=== PATIENT | male | born 1995 | race African-American/Black ===

== ENCOUNTER 2017-10-29 10:45 | Emergency (ER) | payer SELFPAY ==
[2017-10-29 11:22] VITALS: BP 126/67; PULSE 62; RESP 16; TEMP 97.8; O2SAT 98
--- NOTE | 2017-10-29 13:18 | PD ---
HPI Chief Complaint: Medical Clearance Time Seen by Provider: 13:09 Travel History International Travel<30 days: No Contact w/Intl Traveler<30days: No Traveled to known affect area: No History of Present Illness HPI 22-year-old male presents to the emergency department requesting that he be diagnosed with autism. He thinks he is autistic. He says he thinks he is autistic because he has a hard time following directions and he has a learning disability. He also says that people tell him that they think he is autistic. He denies suicidal or homicidal ideations. Denies feeling depressed. Denies illicit drug use. Denies tobacco use. Reports moderate alcohol use. Denies auditory or visual hallucinations. Onset unknown. Duration unknown. Symptoms are mild in severity. No known relieving or aggravating factors. Has not tried taking any medications or treatments to alleviate his symptoms. No primary care provider. Allergies to dust, cats, ragweed. Has no other medical complaints. No other modifying factors or associated signs and symptoms. History Past Medical Histgory Medical History: Denies Significant Hx Tetanus Vaccination: Unknown Social History Alcohol Use: Yes Tobacco Use: No Allergies-Medications (Allergen,Severity, Reaction): Coded Allergies: No Known Allergies (Unverified , 10/29/17) Reported Meds & Prescriptions Reported Meds & Active Scripts Active No Active Prescriptions or Reported Medications Review of Systems Except as stated in HPI: all other systems reviewed are Neg Physical Exam Narrative GENERAL: Well-nourished, well-developed black male patient, in no acute distress SKIN: Warm and dry. HEAD: Atraumatic. Normocephalic. EYES: Pupils equal and round. No scleral icterus. No injection or drainage. ENT: Mucosa pink and moist. Airway patent. NECK: Trachea midline. CARDIOVASCULAR: Regular rate. RESPIRATORY: No accessory muscle use. GASTROINTESTINAL: Flat. MUSCULOSKELETAL: No obvious deformities. No clubbing. No cyanosis. No edema. NEUROLOGICAL: Awake and alert. Oriented 3. No obvious cranial nerve deficits. Motor grossly within normal limits. Normal speech. PSYCHIATRIC: Appropriate mood and affect; insight and judgment normal. Data Data Last Documented VS Vital Signs Date Time Temp Pulse Resp B/P (MAP) Pulse Ox O2 Delivery O2 Flow Rate FiO2 10/29/17 11:22 97.8 62 16 126/67 (86) 98 MDM Medical Screen Exam Complete: Yes Emergency Medical Condition: No Differential Diagnosis Medical clearance Narrative Course 22-year-old male presents requesting to be diagnosed with autism. He is alert and his behavior is appropriate. He denies suicidal or homicidal ideations. I do not feel that he is a threat to himself or others and is capable of making decisions on his own. He is accompanied by a friend at the bedside. Vital signs are stable and the patient is stable for outpatient follow-up and treatment. The patient has no urgent or emergent medical complaints. There is no emergent or urgent medical need at this time. I instructed the patient to follow up with their primary care provider. A medical screening exam was performed: At the time of evaluation the presenting medical condition was determined not to be of an emergent nature. The patient was given the option of receiving additional care, but declined. Patient was given options for additional community resources from which to obtain care. The Patient Has Been advised to seek medical attention for their presenting complaint. The patient has been advised to return to the ER at any time if an emergent condition develops. Primary Impression: Encounter for medical screening examination Scripts No Active Prescriptions or Reported Meds Condition: Stable Yaneth Frye Oct 29, 2017 13:18
== END 2017-10-29 13:34 | disposition left against medical advice (07) ==
LOC: NEPD 10:45
DX: Z03.89 Encounter for observation for other suspected diseases and conditions ruled out (principal)
CPT/HCPCS: 99281